=== PATIENT | female | born 1960 | race Caucasian/White ===

== ENCOUNTER 2017-10-28 12:41 | Emergency (ER) | payer BC, OTHER ==
--- NOTE | 2017-10-28 12:44 | PDOC ---
History of Present Illness <Cruz Iniguez - Last Filed: 10/28/17 15:31> - History of Present Illness Initial Comments: 10/28/17 13:07 Chief complaint: Back pain History of present illness: Patient complains of mid back pain on the right since yesterday. It is somewhat positional in worse with sitting and bending. There is no radiation to the abdomen, or legs. She denies trauma, injury, or excessive straining bending or lifting. Review of systems: There is no vaginal bleeding or discharge. Patient is menopausal. There are no urinary tract symptoms including dysuria, frequency, urgency, hesitancy, or hematuria. Has been no nausea vomiting or diarrhea. Patient had a normal bowel movement yesterday and is eating without difficulty. Past medical history: High blood pressure, elevated cholesterol, non-insulin- dependent diabetes, which are well controlled. History of a kidney stone requiring lithotripsy/laser therapy several years ago On the same side. Social history: Active and without disability. No tobacco alcohol nonprescription drugs. Family history: Reviewed and significant for diabetes, coronary artery disease, and lipidemia. No kidney disease or GI disease. Physical exam: Alert oriented well-developed well-nourished no acute distress cheerful and cooperative Afebrile, vital signs normal No pallor or icterus. PERRLA, fundi benign, ENT clear Neck supple without bruit mass or nodes Chest clear with full breath sounds throughout bilaterally. No wheezes rales or rhonchi. Slight aggravation of pain with deep inspiration on the right side. CV S1 and S2 normal without murmur rub or gallop pulses full and symmetric no JVD or edema Abdomen soft nontender without mass or organomegaly. 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 Other possibilities are occult UTI, renal colic, biliary colic, retrocecal appendix. Plan: UA/C&S. Further medical evaluation depending on results. <Shmuel Cortez - Last Filed: 10/28/17 15:39> - General Stated Complaint: R LOWER BACK PAIN Time Seen by Provider: 10/28/17 12:43 Past History <Cruz Iniguez - Last Filed: 10/28/17 15:31> - Past Medical History Diabetes: Yes HTN: Yes Hypercholesterolemia: Yes - Suicide/Smoking/Psychosocial Hx Smoking Status: Yes Smoking History: Former smoker Number of Cigarettes Smoked Daily: 0 <Shmuel Cortez - Last Filed: 10/28/17 15:39> - Past Medical History Allergies/Adverse Reactions: Allergies Allergy/AdvReac Type Severity Reaction Status Date / Time No Known Allergies Allergy Verified 10/28/17 12:59 Home Medications: Ambulatory Orders Liraglutide [Victoza -] 1.2 mg SQ DAILY@0700 10/28/17 Lisinopril/Hydrochlorothiazide [Lisinopril-Hctz 10-12.5 mg Tab] 1 each PO DAILY 10/28/17 Metformin HCl [Glucophage] 1,000 mg PO DAILY 10/28/17 Sertraline HCl [Zoloft] 100 mg PO DAILY 10/28/17 Simvastatin [Zocor -] 40 mg PO DAILY 10/28/17 *Physical Exam - Vital Signs Last Vital Signs Temp Pulse Resp BP Pulse Ox 98.8 F 82 16 111/64 97 10/28/17 12:42 10/28/17 12:42 10/28/17 12:42 10/28/17 12:42 10/28/17 12:42 <Cruz Iniguez - Last Filed: 10/28/17 15:31> ED Treatment Course - ADDITIONAL ORDERS Additional order review: Laboratory Results 10/28/17 12:44 Urine Color Yellow Urine Appearance Clear Urine pH 7.0 Ur Specific [place] 1.020 Urine Protein Negative Urine Glucose (UA) Negative Urine Ketones Negative Urine Blood Trace-intact H Urine Nitrite Negative Urine Bilirubin Negative Urine Urobilinogen 0.2 Ur Leukocyte Esterase Trace H Urine RBC 0-2 Urine WBC 0-2 Ur Epithelial Cells Few Urine Bacteria Rare - RADIOLOGY Radiograph Interpretation: 10/28/17 15:31 EXAM#: TYPE/EXAM: RESULT: [id number] CT/SPIRAL- RENAL-STONE CT HISTORY PROVIDED: Right flank pain TECHNIQUE: Sequential axial images were obtained from the domes of the diaphragm through the symphysis pubis utilizing urinary tract calculi protocol. The lung bases are clear. There is a faint hyperdensity within the upper pole the right kidney suspicious for a tiny nonobstructing calculus. There is no evidence of additional calcifications within the kidneys, ureters or urinary bladder suspicious for urinary tract calculi. There is no evidence of hydronephrosis or obstructive uropathy. There is a 1.6 cm cyst within the upper pole of the right kidney and a 1.8 cm cyst within the upper pole of the left kidney posteromedially. No significant abnormalities of the liver, spleen, pancreas, or adrenal glands are identified. The gallbladder is clear. There is no evidence of intra-abdominal, retroperitoneal or pelvic mass lesions, fluid collections or lymphadenopathy. There is no evidence of pneumoperitoneum, bowel obstruction or intra-abdominal abscess. There is no CT evidence of acute appendicitis or diverticulitis. There is no evidence of acute bony pathology. IMPRESSION: Faint right upper pole renal calculus with no evidence of obstructive uropathy or acute pathology within the abdomen or pelvis. Please see above discussion. Reported By: Sp Rai MD <Cruz Iniguez - Last Filed: 10/28/17 15:31> Medical Decision Making - Medical Decision Making 10/28/17 14:58 Urinalysis with trace blood, 0-2 red blood cells, 0-2 white blood cells 10/28/17 15:36 CT is negative. Most likely musculoskeletal pain. Muscle relaxant prescribed. Rest and ice. Follow-up with primary physician 10/28/17 15:39 Patient fully ambulatory and in no significant pain or other distress upon discharge to follow-up as directed <Shmuel Cortez - Last Filed: 10/28/17 15:39> *DC/Admit/Observation/Transfer <Cruz Iniguez - Last Filed: 10/28/17 15:31> - Discharge Dispostion Admit: No <Shmuel Cortez - Last Filed: 10/28/17 15:39> Diagnosis at time of Disposition: Musculoskeletal back pain - Discharge Dispostion Disposition: HOME Condition at time of disposition: Stable - Referrals Referrals: Leonides Duncan MD [Primary Care Provider] - 3 days - Patient Instructions Printed Discharge Instructions: Thoracic Back Pain Additional Instructions: Rest, avoid bending, heavy lifting, or straining of any kind. Ice massage may be helpful. Follow-up with primary physician. Examination of the urine and CT of the abdomen and pelvis did not reveal any source for pain. - Post Discharge Activity Forms/Work/School Notes: Back to Work
[2017-10-28 13:05] VITALS: BP 111/64; PULSE 82; TEMP 98.8; BMI 26.9
[2017-10-28 13:07] LABS: URINE APPEARANCE Clear; URINE BILIRUBIN Negative (NEGATIVE); URINE GLUCOSE (UA) Negative (NEGATIVE); URINE KETONE Negative (NEGATIVE); URINE NITRITE Negative (NEGATIVE); URINE PROTEIN Negative (NEGATIVE); URINE UROBILINOGEN 0.2 (0.2-1.0)
[2017-10-28 13:11] LABS: URINE BLOOD Trace-intact (NEGATIVE); URINE COLOR YELLOW; URINE LEUK ESTERASE TRACE (NEGATIVE)
[2017-10-28 14:43] LABS: EPI CELLS FEW /HPF; URINE RBC 0-2 /hpf (0-3); URINE WBC 0-2 (0-5)
[2017-10-28 14:44] LABS: URINE BACTERIA RARE /hpf (NEGATIVE)
== END 2017-10-28 15:51 | disposition home or self-care (01) ==
LOC: SUPCPDRO 12:41 → FER 12:41
DX: M79.1 Myalgia (principal); Z87.891 Personal history of nicotine dependence; I10 Essential (primary) hypertension; E11.9 Type 2 diabetes mellitus without complications; E78.00 Pure hypercholesterolemia, unspecified
CPT/HCPCS: 74176; 81003; 81015; 87086; 99282-25

== ENCOUNTER 2018-12-20 19:23 | Emergency (ER) | payer BC, OTHER ==
[2018-12-20 19:32] VITALS: BP 105/66; PULSE 88; TEMP 99.4; BMI 27.4
--- NOTE | 2018-12-20 20:48 | PDOC ---
History of Present Illness - General History Source: Patient Exam Limitations: No Limitations - History of Present Illness Initial Comments: 12/20/18 21:10 The patient is a 57 year old female with a significant past medical history of Kidney stones, HTN, Type 2 Diabetes (on medication), and Hypercholesterolemia who presents to the emergency department with one day of lower back pain. The patient states she was on a [address] back from [place] last night, went to bed and at around 4am the patient felt a aching, tight pain" to her lower back that radiates to her neck. The patient states she endorses chills, headaches, low grade fever, and joint pain secondary to her back pain. The patient notes she took 3 tablets of extra strength Tylenol at 12pm with mild relief. The patient notes she has been in contact with coworkers who recently had the flu. The patient denies chest pain, shortness of breath, or dizziness. The patient denies vomit, diarrhea or constipation. The patient denies dysuria, frequency, urgency or hematuria. Allergies: NKDA Past surgical history: none reported Social history: None reported PCP: Dr. Leonides Duncan <Ramona Garcia - Last Filed: 12/20/18 21:14> <Josefa Baker - Last Filed: 12/21/18 06:41> - General Chief Complaint: Pain Stated Complaint: BACK PAIN SINCE YESTERDAY, INCREASED TODAY, JOINT Time Seen by Provider: 12/20/18 19:31 Past History <Ramona Garcia - Last Filed: 12/20/18 21:14> - Past Medical History COPD: No Diabetes: Yes HTN: Yes Hypercholesterolemia: Yes - Suicide/Smoking/Psychosocial Hx Smoking Status: Yes Smoking History: Never smoked Have you smoked in the past 12 months: No Number of Cigarettes Smoked Daily: 0 Information on smoking cessation initiated: No Hx Alcohol Use: No Drug/Substance Use Hx: No Substance Use Type: None <Josefa Baker - Last Filed: 12/21/18 06:41> - Past Medical History Allergies/Adverse Reactions: Allergies Allergy/AdvReac Type Severity Reaction Status Date / Time No Known Allergies Allergy Verified 12/20/18 19:25 Home Medications: Ambulatory Orders Lisinopril/Hydrochlorothiazide [Lisinopril-Hctz 10-12.5 mg Tab] 1 each PO DAILY 10/28/17 Metformin HCl [Glucophage] 1,000 mg PO DAILY 10/28/17 Sertraline HCl [Zoloft] 100 mg PO DAILY 10/28/17 Simvastatin [Zocor -] 40 mg PO DAILY 10/28/17 Semaglutide [Ozempic] 0.25 mg SQ MONTHLY 12/20/18 Review of Systems - Review of Systems Able to Perform ROS?: Yes Comments:: 12/20/18 21:11 GENERAL/CONSTITUTIONAL: (+) fever or chills. No weakness. HEAD, EYES, EARS, NOSE AND THROAT:(+) headache. No change in vision. No ear pain or discharge. No sore throat. CARDIOVASCULAR: No chest pain or shortness of breath. RESPIRATORY: No cough, wheezing, or hemoptysis. GASTROINTESTINAL: (+) nausea. No vomiting, diarrhea or constipation. GENITOURINARY: No dysuria, frequency, or change in urination. MUSCULOSKELETAL: (+) joint pain. (+) back pain. (+) neck pain. No joint or muscle swelling . SKIN: No rash NEUROLOGIC: No headache, vertigo, loss of consciousness, or change in strength/ sensation. ENDOCRINE: No increased thirst. No abnormal weight change. HEMATOLOGIC/LYMPHATIC: No anemia, easy bleeding, or history of blood clots. ALLERGIC/IMMUNOLOGIC: No hives or skin allergy. <Ramona Garcia - Last Filed: 12/20/18 21:14> *Physical Exam - Vital Signs Last Vital Signs Temp Pulse Resp BP Pulse Ox 99.4 F 88 16 105/66 97 12/20/18 19:28 12/20/18 19:28 12/20/18 19:28 12/20/18 19:28 12/20/18 19:28 - Physical Exam Comments: 12/20/18 21:11 GENERAL: Awake, alert, and fully oriented, in no acute distress HEAD: No signs of trauma EYES: PERRLA, EOMI, sclera anicteric, conjunctiva clear ENT: (+) dry mucous membranes. Auricles normal inspection, hearing grossly normal, nares patent, oropharynx clear without exudates. NECK:(+) neck pain of flexion and rotation of cervical spine without point tenderness and meningismus. Normal ROM, supple, no lymphadenopathy, JVD, or masses BACK: (+) Pain is reproduced with flexion and extension of lower lumbar spine without pain on leg raising. LUNGS: Breath sounds equal, clear to auscultation bilaterally. No wheezes, and no crackles HEART: Regular rate and rhythm, normal S1 and S2, no murmurs, rubs or gallops ABDOMEN: Soft, nontender, normoactive bowel sounds. No guarding, no rebound. No masses EXTREMITIES: Normal range of motion, no edema. No clubbing or cyanosis. No cords, erythema, or tenderness NEUROLOGICAL: Cranial nerves II through XII grossly intact. Normal speech, normal gait SKIN: Warm, Dry, normal turgor, no rashes or lesions noted. <Ramona Garcia - Last Filed: 12/20/18 21:14> - Vital Signs Last Vital Signs Temp Pulse Resp BP Pulse Ox 99.4 F 88 16 105/66 97 12/20/18 19:28 12/20/18 19:28 12/20/18 19:28 12/20/18 19:28 12/20/18 19:28 <Josefa Baker - Last Filed: 12/21/18 06:41> ED Treatment Course - Medications Given in the ED: ED Medications Discontinued Medications Generic Name Dose Route Start Last Admin Trade Name Freq PRN Reason Stop Dose Admin Acetaminophen 1,000 mg 12/20/18 20:49 12/20/18 20:52 Tylenol - PO 12/20/18 20:50 1,000 mg ONCE ONE Administration <Ramona Garcia - Last Filed: 12/20/18 21:14> Medical Decision Making - Medical Decision Making Documentation has been prepared under my direction and personally reviewed by me in its entirety. I attest that this documented accurately reflects all work, treatment, procedures and medical decision making performed by me. As noted above, this 57-year-old woman with a history of DM, HTN presents with 1 day history of generalized arthralgias/myalgias/subjective fever. No other associated symptoms. Patient had first noted symptoms while driving home from [place]; no history of overuse or trauma. Patient had been exposed in the last few weeks to coworkers with influenza. She did have her influenza immunization this year. Although the patient has a history of renal colic, she states that the pain she is experiencing today is not like her previous kidney stone pain. Exam as noted. Temperature on presentation 99. 4 Fahrenheit Patient had not taken any antipyretic since 12 noon (approximately 8 hours prior to presentation). She was given 1 g acetaminophen by mouth. Urinalysis was performed: Microscopic exam positive for red blood cells(10-15), white blood cells (0-2) few epi/few bacteria. Urine sent for culture and sensitivity. Since history was not consistent with patient's previous episodes of renal colic, doubt that her pain is related to kidney stones and no further workup will be done regarding that at this time. Results of the rapid influenza test was pending when patient was discharged. She will be called if influenza test is positive and prescription for Tamiflu sent to her pharmacy. Meanwhile, patient will stay home from work for the next few days, rest and drink plenty of fluids. She should take antipyretics such as Tylenol or Motrin (patient states that her PMD has never cautioned her not to take anti-inflammatory medications because of her DM). She should return to the emergency room if she has worsening pain, persistent high fever or develops vomiting/shortness of breath/severe cough 12/21/18 06:40 Rapid influenza negative for A/B <Josefa Baker - Last Filed: 12/21/18 06:41> *DC/Admit/Observation/Transfer - Attestations Scribe Attestion: 12/20/18 21:11 Documentation prepared by Ramona Garcia, acting as biomedical engineering internship for Josefa Baker MD <Ramona Garcia - Last Filed: 12/20/18 21:14> <Josefa Baker - Last Filed: 12/21/18 06:41> Diagnosis at time of Disposition: Viral syndrome - Discharge Dispostion Disposition: HOME Condition at time of disposition: Stable - Referrals Referrals: Leonides Duncan MD [Primary Care Provider] - - Patient Instructions Printed Discharge Instructions: DI for Viral Syndrome Additional Instructions: Rest; drink plenty of fluids Tylenol/Motrin as needed for muscle and joint aches/fever We will call you if influenza test is positive If you have influenza, Tamiflu 75 mg twice a day for 5 days will be called into your pharmacy We will call you if urine culture is positive for urinary tract infection No work until Thursday, December 27 Return to ER if you have persistent high fever, severe cough/shortness of breath , persistent severe pain Follow-up with your doctor within the next 7-10 days - Post Discharge Activity Forms/Work/School Notes: Back to Work
[2018-12-20] MEDS ORDERED: ACETAMINOPHEN 500 MG TABLET (FP) PO ONE (20:49)
[2018-12-20] MEDS ORDERED: ACETAMINOPHEN 500 MG TABLET (FP) ONE (20:50)
[2018-12-20 21:27] LABS: EPITHELIAL CELLS FEW /hpf
== END 2018-12-20 21:55 | disposition home or self-care (01) ==
LOC: FER 19:23 → SUPCPDRO 19:23 → FER 21:55
DX: B34.9 Viral infection, unspecified (principal); E11.9 Type 2 diabetes mellitus without complications; I10 Essential (primary) hypertension
CPT/HCPCS: 81003; 81015; 87086; 87804; 99281-25

== ENCOUNTER 2020-07-16 06:30 | Emergency (ER) | payer BC, OTHER ==
--- NOTE | 2020-07-16 06:35 | PDOC ---
Rapid Medical Evaluation Chief Complaint: Rectal Bleed Time Seen by Provider: 07/16/20 06:34 Medical Evaluation: Allergies Allergy/AdvReac Type Severity Reaction Status Date / Time No Known Allergies Allergy Verified 07/16/20 06:32 07/16/20 06:47 Pt has diabetes and depression. She has had kidney stones in the past. Now with rectal bleeding since 4PM yesterday. She had multiple episodes of bleeding with stool. Just now in the ER she passed blood without stool. Pt has never had this before. Mininmal abdominal discomfort. No other complaints. Vitals stable HR and BP stable EKG pending Labs drawn. Pt will be seen by the daytime ED doc. Discharge Disposition - Discharge Dispostion Condition at time of disposition: Stable - Referrals Referrals: Leonides Duncan MD [Primary Care Provider] - - Patient Instructions - Post Discharge Activity
[2020-07-16 06:40] VITALS: TEMP 98.8; BMI 21.4
--- OUTSIDE RECORDS SUMMARY | 2020-07-16 06:42 | XMS ---
:1960 Author Organization [facility] Support Name Relationship Address Phone ANDREE [employer] Unavailable [address] [phone] [place] [address] [place] [address] Re-disclosure Warning The records that you are about to access may contain information from federally- assisted alcohol or drug abuse programs. If such information is present, then the following federally mandated warning applies: This information has been disclosed to you from records protected by federal confidentiality rules (42 CFR part 2). The federal rules prohibit you from making any further disclosure of this information unless further disclosure is expressly permitted by the written consent of the person to whom it pertains or as otherwise permitted by 42 CFR part 2. A general authorization for the release of medical or other information is NOT sufficient for this purpose. The Federal rules restrict any use of the information to criminally investigate or prosecute any alcohol or drug abuse patient.The records that you are about to access may contain highly sensitive health information, the redisclosure of which is protected by Article 27-F of the [facility] Public Health law. If you continue you may haveaccess to information: Regarding HIV / AIDS; Provided by facilities licensed or operated by the [facility] Office of Mental Health; or Provided by the [facility] Office for People With Developmental Disabilities. If such information is present, then the following [facility] mandated warning applies: This information has been disclosed to you from confidential records which are protected by state law. State law prohibits you from making any further disclosure of this information without the specific written consent of the person to whom it pertains, or as otherwise permitted by law. Any unauthorized further disclosure in violation of state law may result in a fine or assisted sentence or both. A general authorization for the release of medical or other information is NOT sufficient authorization for further disclosure. Insurance Providers Payer Policy type Policy ID Covered Covered republican's Policy Pl an name / Coverage republican ID relationship to Byrd Inf ormation type byrd GHI CBP [id number] HU [id number] OUTPT BC PPO [id number] Results ID Date Data Source [id number] 05/29/2020 12:00:00 AM EDT [facility] Name Value Range Interpretation Code Description Data Ashleigh rce(s) Supporting Document(s ) COV2 [facility] This lab was ordered by [facility] and reported by [facility] [employer]. ID Date Data Source [id number] 05/23/2020 09:16:00 AM EDT [facility] Name Value Range Interpretation Code Description Data Ashleigh rce(s) Supporting Document(s ) SARS-COV-2 [facility] This lab was ordered by FROY cervantes nd reported by [employer]. Procedure
--- NOTE | 2020-07-16 07:08 | PDOC ---
History of Present Illness - General Chief Complaint: Rectal Bleed Stated Complaint: DIARRHEA, RECTAL BLEED Time Seen by Provider: 07/16/20 06:34 - History of Present Illness Initial Comments: 07/16/20 07:24 59yo female with a pmhx of dm and depression states she started with diarrhea yesterday at 4p. States after about an hour of diarrhea - multiple episodes she started with brbpr. Pt states every 45min overnight she was up with cramping in her abd and then a bloody bowel movement. Pt states now only with blood coming out. No dysuria. States she had nausea yesterday when the diarrhea started, but no vomiting. Pt denies back pain. No cp/sob. No lightheaded or dizziness. No f/c. No cough. No other complaints. States she ate the same food that her cooked as her family. Pt is post menopausal. Past History - Medical History Allergies/Adverse Reactions: Allergies Allergy/AdvReac Type Severity Reaction Status Date / Time IV contrast CT Allergy Uncoded 07/16/20 09:15 Home Medications: Ambulatory Orders Levofloxacin [Levaquin] 500 mg PO DAILY #10 tablet 07/16/20 Lisinopril [Zestril] 2.5 mg PO DAILY 07/16/20 Sertraline HCl 100 mg PO DAILY 07/16/20 Simvastatin 40 mg PO DAILY 07/16/20 metFORMIN HCL [Metformin HCl] 250 mg PO DAILY 07/16/20 metroNIDAZOLE [Flagyl -] 500 mg PO TID 10 Days #30 tablet 07/16/20 COPD: No Diabetes: Yes HTN: Yes Hypercholesterolemia: Yes - Psycho-Social/Smoking History Smoking Status: Yes Smoking History: Never smoked Have you smoked in the past 12 months: No Number of Cigarettes Smoked Daily: 0 Information on smoking cessation initiated: No - Substance Abuse Hx (Audit-C & DAST Scrn) How often the patient has a drink containing alcohol: Never Score: In Men: 4 or > Positive; In Women: 3 or > Positive: 0 Screen Result (Pos requires Nsg. Audit-10AR): Negative In the last yr the pt used illegal drug/Rx for NonMed reason: No Score: Yes response is considered Positive: 0 Screen Result (Positive result requires Nsg. DAST-10): Negative Review of Systems - Review of Systems Able to Perform ROS?: Yes Is the patient limited Pakistani proficient: No Constitutional: No: Chills, Fever HEENTM: No: Nose Pain, Throat Pain Respiratory: No: Cough, Shortness of Breath Cardiac (ROS): No: Chest Pain, Lightheadedness, Palpitations, Syncope ABD/GI: Yes: Diarrhea, Nausea, Rectal Bleeding, Abdominal cramping. No: Vomiting : No: Burning, Dysuria Musculoskeletal: No: Back Pain Integumentary: No: Rash Neurological: No: Headache, Numbness, Paresthesia, Ataxia All Other Systems: Reviewed and Negative *Physical Exam - Vital Signs Last Vital Signs Temp Pulse Resp BP Pulse Ox 98.8 F 68 18 146/78 100 07/16/20 06:37 07/16/20 06:37 07/16/20 06:37 07/16/20 06:37 07/16/20 06:37 - Physical Exam General Appearance: Yes: Nourished, Appropriately Dressed. No: Apparent Distress HEENT: positive: EOMI, Normal Voice. negative: Pale Conjunctivae Neck: positive: Supple Respiratory/Chest: positive: Lungs Clear, Normal Breath Sounds. negative: Respiratory Distress Cardiovascular: positive: Regular Rhythm, Regular Rate, S1, S2. negative: Edema Gastrointestinal/Abdominal: positive: Normal Bowel Sounds, Soft, Tenderness (LLQ). negative: Guarding, Rebound Rectal Exam: positive: other (small internal hemorrhoid, bright red blood on the glove, no masses palpated) Musculoskeletal: positive: Normal Inspection. negative: CVA Tenderness Extremity: positive: Normal Capillary Refill, Normal Inspection, Normal Range of Motion. negative: Swelling, Calf Tenderness Integumentary: positive: Normal Color, Dry, Warm Neurologic: positive: Fully Oriented, Alert, Normal Mood/Affect Heart Score/ECG Review - ECG Intrepretation Comment:: 07/16/20 07:55 sinus at 68, nl axis, nl interval, no acute st/t wave findings ED Treatment Course - LABORATORY CBC & Chemistry Diagram: 07/16/20 06:45 07/16/20 06:45 Medical Decision Making - Medical Decision Making 07/16/20 07:55 a/p: 59yo female with rectal bleeding and diarrhea since last night -pt with L sided abd pain -labs sent by the prior attending and pending -will send for ct abd/pelvis with iv contrast for eval of colitis and further eval of rectal bleeding -still having BRBPR -ivf hydration -will monitor and reassess 07/16/20 07:57 hgb 14 07/16/20 09:[address] now feels itchy, has hives on her chin and her R buttock. Will give benadryl. Denies seafood allergy. Denies every having an allergy before. Denies allergy to contrast, however now with hives. Suspect secondary to contrast, will add contrast as an allergy 07/16/20 09:07 labs reviewed trop pending ua shows blood ct pending 07/16/20 09:47 hives resolved, resting comfortably pending ct read 07/16/20 11:[address] pt feeling better, states she is hungry and wants to go home hgb 14 will start on oral abx and follow up with her GI and Dr. Duncan answered all questions, gave return precautions stable for dc to home Discharge - Discharge Information Problems reviewed: Yes Clinical Impression/Diagnosis: Acute colitis Condition: Stable Disposition: HOME - Admission No - Additional Discharge Information Prescriptions: metroNIDAZOLE [Flagyl -] 500 mg PO TID 10 Days #30 tablet Levofloxacin [Levaquin] 500 mg PO DAILY #10 tablet - Follow up/Referral Referrals: Leonides Duncan MD [Primary Care Provider] - Memo Del Toro DO [Staff Physician] - - Patient Discharge Instructions Patient Printed Discharge Instructions: DI for Rectal Bleeding, DI for Colitis Additional Instructions: Please take the flagyl three time a day for the next 10 days. Please take the levaquin daily for the next 10 days. Please call your fire apparatus engineer to schedule a follow up appointment. Please also call your primary care physician to schedule a follow up for this week. Please eat a clear liquid diet for the next 48 hours and then advance back to a regular diet as tolerated. Please return to the ER if you develop worsening abdominal pain, fevers, worsening diarrhea, rectal bleeding, or any other concerns or complaints. If you are unable to tolerate the antibiotics please return to the ER for intravenous antibiotics. Please drink plenty of fluids with the antibiotics. Please return to the ER with any further concerns or complaints. - Post Discharge Activity
[2020-07-16] MEDS ORDERED: SODIUM CHLORIDE 0.9% 1000 ML INFUS.BAG IV ONE (07:23)
[2020-07-16 07:48] LABS: BASO % 0.4 % (0-2.0); EOS % 1.2 % (0-4.5); HEMATOCRIT 43.5 % (32.4-45.2); HEMOGLOBIN 14.2 GM/dl (10.7-15.3); MCH 29.9 pg (25.7-33.7); MCHC 32.6 g/dl (32.0-36.0); MEAN CELL VOLUME 91.6 fl (80-96); MEAN PLT VOLUME 8.7 fl (7.5-11.1); MONO % 4.8 % (3.8-10.2); NEUT % 70.6 % (42.8-82.8); PLATELET COUNT 411 K/MM3 (134-434); RBC 4.74 M/mm3 (3.60-5.2); RDW 13.1 % (11.6-15.6); WHITE BLOOD COUNT 11.2 K/mm3 (4.0-10.8)
[2020-07-16 07:55] LABS: ALBUMIN 4.5 g/dl (3.4-5.0); BILIRUBIN,TOTAL 0.7 mg/dl (0.2-1); CALCIUM 9.8 mg/dl (8.5-10); CREATININE 0.7 mg/dl (0.55-1.3); POTASSIUM 3.9 mmol/L (3.5-5.1); TOT PROT 8.1 g/dl (6.4-8.2)
[2020-07-16 08:23] LABS: INR 1.13 (0.82-1.09); PROTHROMBIN TIME (PATIENT) 12.6 SEC (10.2-13.0)
[2020-07-16 08:31] LABS: URINE APPEARANCE CLEAR; URINE BILIRUBIN NEGATIVE (NEGATIVE); URINE COLOR YELLOW; URINE GLUCOSE (UA) NEGATIVE (NEGATIVE); URINE KETONE NEGATIVE (NEGATIVE)
[2020-07-16 08:32] LABS: PH,URINE 5.5 (4.5-8); URINE LEUK ESTERASE NEGATIVE (NEGATIVE); URINE NITRITE NEGATIVE (NEGATIVE); URINE PROTEIN NEGATIVE (NEGATIVE); URINE UROBILINOGEN 0.2 (0.2-1.0)
[2020-07-16 08:33] LABS: EPI CELLS FEW /HPF; URINE WBC 0-2 (NEGATIVE)
--- NOTE | 2020-07-16 09:41 | EKG ---
Test Reason : Blood Pressure : / mmHG Vent. Rate : 068 BPM Atrial Rate : 068 BPM P-R Int : 134 ms QRS Dur : 076 ms QT Int : 378 ms P-R-T Axes : 037 009 019 degrees QTc Int : 401 ms NORMAL SINUS RHYTHM NORMAL ECG NO PREVIOUS ECGS AVAILABLE Confirmed by CHARANJIT PHILLIPS MD ([id number]) on 07/16/2020 9:41:02 AM Referred By: MD JESUS Confirmed By:CHARANJIT PHILLIPS MD
[2020-07-16 11:03] VITALS: BP 126/57; PULSE 70
[2020-07-16 11:06] LABS: CREATININE 0.7 mg/dl (0.55-1.3); GLUCOSE,RANDOM 124 mg/dl (74-106)
[2020-07-16 11:07] LABS: ALBUMIN 4.2 g/dl (3.4-5.0); ANION GAP 8 MMOL/L (8-16); CALCIUM 9.4 mg/dl (8.5-10); CHLORIDE 104 mmol/L (98-107); CO2 26 mmol/L (21-32); POTASSIUM 3.9 mmol/L (3.5-5.1); SODIUM 138 mmol/L (136-145); TOT PROT 8.2 g/dl (6.4-8.2)
[2020-07-16 11:08] LABS: ALK PHOS 89 U/L (45-117); BILIRUBIN,TOTAL 0.4 mg/dl (0.2-1); SGOT/AST 19 U/L (15-37); SGPT/ALT 23 U/L (13-61)
[2020-07-16] MEDS ORDERED: metroNIDAZOLE 250 MG TABLET PO ONE (11:13)
[2020-07-16] MEDS ORDERED: CIPROFLOXACIN 250 MG TABLET (RESTRICTED TO ID) PO ONE (11:16)
== END 2020-07-16 11:28 | disposition home or self-care (01) ==
LOC: FER 06:30
PROC: 3E033GC Introduction of Other Therapeutic Substance into Peripheral Vein, Percutaneous Approach (ICD-10-PCS; principal; 2020-07-16)
DX: K52.9 Noninfective gastroenteritis and colitis, unspecified (principal)
CPT/HCPCS: 36415; 74177-TC; 80053; 81003; 82272; 82550; 84484; 85025; 85610; 86850; 86900; 86901; 93005; 99285-25; Q9967

== ENCOUNTER 2023-01-19 02:41 | Observation (INO) | payer BC, OTHER ==
[2023-01-19] MEDS ORDERED: ACETAMINOPHEN INJECTION 100 ML IVPB ONE (03:06)
[2023-01-19] MEDS ORDERED: ACETAMINOPHEN 1000 MG/100 ML BAG IVPB ONE (03:16)
[2023-01-19] MEDS ORDERED: SODIUM CHLORIDE 0.9% 500 ML INFUS.BAG IV ONE (03:17)
[2023-01-19 03:40] LABS: BASO % 0.2 % (0-2.0); EOS % 1.6 % (0-4.5); HEMATOCRIT 37.5 % (32.4-45.2); HEMOGLOBIN 12.8 GM/dL (10.7-15.3); LYMPH % 17.2 % (8-40); MCH 29.9 pg (25.7-33.7); MCHC 34.1 g/dl (32.0-36.0); MEAN CELL VOLUME 87.6 fl (80-96); MEAN PLT VOLUME 8.1 fl (7.5-11.1); MONO % 6.6 % (3.8-10.2); NEUT % 74.4 % (42.8-82.8); PLATELET COUNT 345 10^3/uL (134-434); RBC 4.28 M/mm3 (3.60-5.2); RDW 13.2 % (11.6-15.6); WHITE BLOOD COUNT 11.5 K/mm3 (4.0-10.0)
[2023-01-19 03:51] LABS: INR 1.15 (0.83-1.09); PROTHROMBIN TIME (PATIENT) 13.3 SEC (9.7-13.0)
[2023-01-19 04:04] LABS: EPI CELLS 6 /uL (0-25.1); HYALINE CASTS 0 /uL (0-3.1); URINE APPEARANCE CLEAR; URINE BACTERIA 8 /uL (0-1359); URINE BILIRUBIN NEGATIVE (NEGATIVE); URINE COLOR YELLOW; URINE GLUCOSE (UA) NEGATIVE (NEGATIVE); URINE KETONE NEGATIVE (NEGATIVE); URINE LEUK ESTERASE 1+ (NEGATIVE); URINE NITRITE NEGATIVE (NEGATIVE); URINE PROTEIN NEGATIVE (NEGATIVE); URINE RBC 66 /uL (0-23.9); URINE UROBILINOGEN 0.2 mg/dL (0.2-1.0); URINE WBC 15 /uL (0-25.8)
[2023-01-19 04:08] LABS: ALBUMIN 3.8 g/dl (3.4-5.0); BLOOD UREA NITROGEN 14.7 mg/dL (7-18); CALCIUM 9.4 mg/dL (8.5-10.1)
[2023-01-19 04:11] LABS: CREATININE 0.7 mg/dL (0.55-1.3)
[2023-01-19 04:13] LABS: BILIRUBIN,TOTAL 0.7 mg/dL (0.2-1); TOT PROT 7.8 g/dl (6.4-8.2)
[2023-01-19] MEDS ORDERED: PIPERACILLIN/TAZOB 3.375 GM 3.375 GM in DEXTROSE 5%-WATER - 50 ML IVPB ONE (05:10)
[2023-01-19] MEDS ORDERED: PIPERACILLIN/TAZOBACTAM 3.375 GM VIAL IVPB ONE (05:13)
[2023-01-19] MEDS ORDERED: morphine CARPU-JECT 4 MG/1 ML DISP.SYRIN IVPUSH ONE (08:19)
[2023-01-19] MEDS ORDERED: morphine SULFATE 4 MG/ML VIAL ONE (08:32)
[2023-01-19 10:49] VITALS: RESP 18
[2023-01-19 11:01] VITALS: BMI 28.0
[2023-01-19] MEDS: POLYETHYLENE GLYCOL (HEALTHYLAX) 3350 17 GM PACKET PO SCH (11:54)
[2023-01-19] MEDS ORDERED: ACETAMINOPHEN 325 MG TABLET (FP) PO PRN (12:04)
[2023-01-19] MEDS: CEFTRIAXONE 1 GM in DEXTROSE 5%-WATER - 50 ML IVPB SCH (12:59)
[2023-01-19] MEDS: INSULIN SLIDING SCALE (NOVOLOG) 1 VIAL SQ SCH ×2 (16:32→21:51)
[2023-01-20] MEDS: KETOROLAC TROMETHAMINE 30 MG/1 ML VIAL IVPUSH SCH ×3 (02:11→09:45)
[2023-01-20] MEDS: INSULIN SLIDING SCALE (NOVOLOG) 1 VIAL SQ SCH ×2 (06:23→11:11)
[2023-01-20 08:50] LABS: CALCIUM 8.7 mg/dl (8.5-10); CREATININE 0.6 mg/dl (0.55-1.3); MAGNESIUM 1.9 mg/dL (1.8-2.4); POTASSIUM 4.4 mmol/L (3.5-5.1)
[2023-01-20 09:06] VITALS: BP 138/84; PULSE 74; TEMP 98.9
[2023-01-20 09:33] LABS: BASO % 0.5 % (0-2.0); EOS % 3.4 % (0-4.5); HEMATOCRIT 36.3 % (32.4-45.2); HEMOGLOBIN 12.4 GM/dL (10.7-15.3); LYMPH % 27.5 % (8-40); MCHC 34.3 g/dl (32.0-36.0); MEAN CELL VOLUME 87.6 fl (80-96); MEAN PLT VOLUME 8.3 fl (7.5-11.1); MONO % 8.3 % (3.8-10.2); NEUT % 60.3 % (42.8-82.8); PLATELET COUNT 306 10^3/uL (134-434); RBC 4.14 M/mm3 (3.60-5.2); RDW 13.2 % (11.6-15.6)
[2023-01-20] MEDS: POLYETHYLENE GLYCOL (HEALTHYLAX) 3350 17 GM PACKET PO SCH (09:44)
[2023-01-20] MEDS: CEFTRIAXONE 1 GM in DEXTROSE 5%-WATER - 50 ML IVPB SCH (09:44)
[2023-01-20] MEDS ORDERED: LISINOPRIL 5 MG TABLET PO SCH (10:00)
[2023-01-20] MEDS ORDERED: ENOXAPARIN NA (PORCINE) 40 MG/0.4 ML DISP.SYRIN SQ SCH (10:00)
== END 2023-01-20 12:46 | disposition home or self-care (01) ==
LOC: FER 02:41 → FM/S 09:35
PROVIDERS: ADMIT Internal Medicine
PROC: 3E033NZ Introduction of Analgesics, Hypnotics, Sedatives into Peripheral Vein, Percutaneous Approach (ICD-10-PCS; principal; 2023-01-19)
PROC: 3E03329 Introduction of Other Anti-infective into Peripheral Vein, Percutaneous Approach (ICD-10-PCS; 2023-01-19)
PROC: 3E0337Z Introduction of Electrolytic and Water Balance Substance into Peripheral Vein, Percutaneous Approach (ICD-10-PCS; 2023-01-19)
PROC: 3E013GC Introduction of Other Therapeutic Substance into Subcutaneous Tissue, Percutaneous Approach (ICD-10-PCS; 2023-01-19)
DX: K57.92 Diverticulitis of intestine, part unspecified, without perforation or abscess without bleeding (principal); I10 Essential (primary) hypertension; E11.9 Type 2 diabetes mellitus without complications; E78.5 Hyperlipidemia, unspecified; Z91.041 Radiographic dye allergy status; Z79.84 Long term (current) use of oral hypoglycemic drugs
CPT/HCPCS: 36415; 74176-TC; 80048; 80053; 81003; 82962; 83735; 84100; 85025; 85610; 87086; 97116-GP; 97161-GP; 99285-25; C9803-CS; G0378; U0003; U0005

== ENCOUNTER 2024-05-09 21:19 | Emergency (ER) | payer BC, OTHER ==
[2024-05-09 21:29] VITALS: BP 117/68; PULSE 74; RESP 16; TEMP 98; BMI 27.2
== END 2024-05-09 22:32 | disposition home or self-care (01) ==
LOC: FER 21:19
DX: S93.402A Sprain of unspecified ligament of left ankle, initial encounter (principal); X50.1XXA Overexertion from prolonged static or awkward postures, initial encounter
CPT/HCPCS: 73610-TC-LT-FY; 99283-25

== ENCOUNTER 2025-02-02 09:29 | Emergency (ER) | payer BC, OTHER ==
[2025-02-02 09:41] VITALS: BP 192/72; PULSE 79; RESP 20; TEMP 98.4; BMI 25.2
[2025-02-02] MEDS ORDERED: ONDANSETRON 4 MG/2 ML VIAL ONE (10:00)
[2025-02-02] MEDS ORDERED: ACETAMINOPHEN INJECTION 100 ML ONE (10:01)
[2025-02-02] MEDS ORDERED: FAMOTIDINE 20 MG/50 ML IVPB 20 MG/50 ML MG IVPB ONE (10:01)
[2025-02-02 10:19] LABS: ABSOLUTE IMMATURE GRANULOCYTES 0.02 x10^3/uL (0.0-0.031); BASOPHILS # 0.03 x10^3/uL (0.01-0.08); EOSINOPHIL % 0.3 % (0.7-5.8); EOSINOPHILS # 0.03 x10^3/uL (0.04-0.36); HEMATOCRIT 45.7 % (34.1-44.9); HEMOGLOBIN 15.1 g/dL (11.2-15.7); INR 1.06 (0.83-1.09); MEAN CELL VOLUME 91.6 fl (79.4-94.8); MEAN PLT VOLUME 10.5 fl (9.4-12.3); MONOCYTE # 0.35 x10^3/uL (0.24-0.86); MONOCYTE % 3.2 % (4.7-12.5); PLATELET COUNT 329 x10^3/uL (182-369); PROTHROMBIN TIME (PATIENT) 11.8 SEC (9.7-13.0); RDW 12.5 % (12.4-16.4)
[2025-02-02] MEDS: ACETAMINOPHEN 1000 MG/100 ML BAG IVPB ONE (10:22)
[2025-02-02] MEDS: SODIUM CHLORIDE 1,000 ML IV STA (10:22)
[2025-02-02] MEDS: FAMOTIDINE 20 MG/50 ML IVPB 20 MG/50 ML MG IVPB ONE (10:23)
[2025-02-02] MEDS: ONDANSETRON 4 MG/2 ML VIAL IVPUSH ONE (10:23)
[2025-02-02 10:31] LABS: ALBUMIN 4.6 g/dl (3.4-5.0); ALK PHOS 80 U/L (45-117); ANION GAP 8 mmol/L (4-13); BILIRUBIN,TOTAL 0.5 mg/dl (0.2-1); CALCIUM 10.1 mg/dl (8.5-10.1); CHLORIDE 100 mmol/L (98-107); CO2 29 mmol/L (21-32); CREATININE 0.7 mg/dl (0.6-1.3); GLUCOSE,RANDOM 168 mg/dl (74-106); SGOT/AST 19 U/L (15-37); SGPT/ALT 18 U/L (7-52); SODIUM 137 mmol/L (136-145); TOT PROT 7.3 g/dl (6.4-8.2)
[2025-02-02] MEDS ORDERED: AMOX TR/POT CLAV 875MG/125MG TABLETS (FP) ONE (12:02)
[2025-02-02] MEDS: AMOX TR/POT CLAV 875MG/125MG TABLETS (FP) PO ONE (12:02)
[2025-02-02 12:32] LABS: EPITHELIAL CELLS 0-5 /hpf
== END 2025-02-02 12:35 | disposition home or self-care (01) ==
LOC: SUPCPDRO 09:29 → FER 09:29
PROC: 3E033GC Introduction of Other Therapeutic Substance into Peripheral Vein, Percutaneous Approach (ICD-10-PCS; principal; 2025-02-02)
PROC: 3E033NZ Introduction of Analgesics, Hypnotics, Sedatives into Peripheral Vein, Percutaneous Approach (ICD-10-PCS; 2025-02-02)
PROC: 3E033GC Introduction of Other Therapeutic Substance into Peripheral Vein, Percutaneous Approach (ICD-10-PCS; 2025-02-02)
DX: K57.33 Diverticulitis of large intestine without perforation or abscess with bleeding (principal); R10.30 Lower abdominal pain, unspecified; R11.2 Nausea with vomiting, unspecified; R19.7 Diarrhea, unspecified
CPT/HCPCS: 36415; 74176-TC; 80053; 81003; 81015; 85025; 85610; 86850; 86900; 86901; 99285-25; J0131